=== PATIENT | female | born 1970 | race Two or more races ===

== ENCOUNTER 2017-04-02 17:37 | Emergency (ER) | payer OTHER ==
[~2017-04-02] VITALS: Ht 152.4 cm; Wt 63.5 kg
[2017-04-02 17:39] VITALS: BP 124/79
[2017-04-02] MEDS ORDERED: IBUPROFEN600 MG ORAL (18:28)
[2017-04-02 18:47] VITALS: BP 124/79
--- NOTE | 2017-04-02 21:58 | Emergency Room Report ---
History of Present Illness General Chief Complaint: Laceration Source: Patient Present Illness HPI Patient is a 47-year-old female presenting for left fifth finger pain. Patient is right-hand dominant. She states that door close onto the finger prior to arrival. Pain is now 9/10 dull ache and does not radiate. Worse with movement. She denies any numbness or tingling. She denies any previous injury to the area Allergies: Coded Allergies: No Known Allergies (Unverified , 04/02/17) Patient History Past Medical History: see triage record Pertinent Family History: none Last Menstrual Period: 12/21/16 Reviewed Nursing Documentation: PMH: Agreed, PSxH: Agreed Nursing Documentation-PMH Past Medical History: No History, Except For Review of Systems All Other Systems: negative except mentioned in HPI Physical Exam Vital Signs Date Time Temp Pulse Resp B/P (MAP) Pulse Ox O2 Delivery O2 Flow Rate FiO2 04/02/17 17:39 97.7 68 19 124/79 98 Room Air Sp02 EP Interpretation: reviewed, normal General Appearance: no apparent distress, alert, GCS 15, non-toxic Head: normocephalic, atraumatic Eyes: bilateral eye normal inspection, bilateral eye PERRL Musculoskeletal: decreased range of motion - decreased flexion at PIPJ, swelling, tender - TTP over the L 5th finger proximal to PIPJ Neurologic: alert, oriented x3, responsive, motor strength/tone normal, sensory intact, speech normal Psychiatric: judgement/insight normal, memory normal, mood/affect normal, no suicidal/homicidal ideation Skin: normal color, no rash, warm/dry, well hydrated, abrasions - L 5th finger Lymphatic: no adenopathy Procedures Splinting Splinting : Consent: Verbal Location: L hand 5th finger Pre-Made Type: metal finger Pre-Proc Neuro Vasc Exam: normal Post-Proc Neuro Vasc Exam: normal Patient Tolerated: Well Complications: None Medical Decision Making PA Attestation Dr. Pollard is my supervising physician. Patient management was discussed with my supervising physician Diagnostic Impression: Primary Impression: Contusion, finger Qualified Codes: S60.052A - Contusion of left little finger without damage to nail, initial encounter ER Course Patient is a 47-year-old female presenting for left fifth finger pain. Ddx considered include but not limited to sprain/strain, fracture, contusion PE: NAD. TTP over the L 5th finger proximal to PIPJ. + edema. Abrasion noted. X-ray of the left hand is unremarkable. No fracture Medical finger splint is placed and the patient will be discharged home with pain medication. ER precautions given Other X-Ray Diagnostic Results Other X-Ray Diagnostic Results : X-Ray ordered: L hand # of Views/Limited Vs Complete: 3 View Indication: Pain EP Interpretation: Yes Interpretation: no dislocation, no soft tissue swelling, no fractures Impression: No acute disease Electronically Signed by: Dominik Pollard MD PA Scribe Text I am acting as scribe for my supervising physician. My supervising physician's interpretation of the L hand xrays are there are no fractures, dislocations or soft tissue swelling. Last Vital Signs Date Time Temp Pulse Resp B/P (MAP) Pulse Ox O2 Delivery O2 Flow Rate FiO2 04/02/17 18:47 97.7 68 19 124/79 98 Room Air Status: improved Disposition: HOME, SELF-CARE Condition: Improved Scripts Ibuprofen* (MOTRIN*) 600 Mg Tablet 600 MG ORAL Q8H Y for For Pain, #30 TAB 0 Refills Prov: AUSTIN ISABEL 04/02/17 Referrals: [facility],REFERRING (PCP) Patient Instructions: Cast or Splint Care, RICE for Routine Care of Injuries Additional Instructions: I discussed my findings with the patient. All questions and concerns have been answered. Treatment and medication compliance have been addressed. I advised the patient that they need to follow up with PMD in 3-5 days. Return to ED if symptoms worsen, new symptoms arise, or if needed for any reason. Patient verbalized understanding of discharge instructions. AUSTIN ISABEL Apr 02, 2017 21:58
--- NOTE | 2017-04-03 09:56 | Diagnostic Imaging Report ---
Indication: Pain and laceration of this phalanx status post injury Technique: 3 views left hand Comparison: none Findings: No acute fractures. No dislocations. The joint spaces are preserved. No radiopaque foreign body demonstrated Impression: Negative
== END 2017-04-02 18:47 | disposition home or self-care (01) ==
LOC: EMR 18:25
DX: S60.052A Contusion of left little finger without damage to nail, initial encounter (principal); W22.8XXA Striking against or struck by other objects, initial encounter; Y92.89 Other specified places as the place of occurrence of the external cause
CPT/HCPCS: 99283

== ENCOUNTER 2018-09-22 14:07 | Emergency (ER) | payer OTHER ==
[~2018-09-22] VITALS: Ht 152.4 cm; Wt 65.8 kg
[~2018-09-22 14:07] MED LIST: IBUPROFEN600 MG ORAL
[2018-09-22] MEDS ORDERED: LET 3ml Soln TOPIC ONE (15:00)
--- NOTE | 2018-09-22 15:14 | Emergency Room Report ---
History of Present Illness General Chief Complaint: Laceration Source: Patient (Giovanni Chinchilla) Present Illness HPI 48-year-old female patient presents the ER complaining of laceration on the dorsum of her right hand. Reports she is right-hand dominant. States that she was cleaning a glass when it broke in her hand. Reports laceration sustained on dorsum of right hand. Reports she is up-to-date on her tetanus vaccinations. Denies pain with movement of hand. Denies taking blood thinner medications. Denies numbness or tingling. Denies other aggravating or relieving factors. (Giovanni Chinchilla) Allergies: Coded Allergies: No Known Allergies (Unverified , 04/02/17) Patient History Past Medical History: see triage record Last Menstrual Period: 07/2018 Now: No : 2 Para: 2 Reviewed Nursing Documentation: PMH: Agreed; PSxH: Agreed (Giovanni Chinchilla) Nursing Documentation-PMH Past Medical History: No Stated History (Giovanni Chinchilla) Review of Systems All Other Systems: negative except mentioned in HPI (Giovanni Chinchilla) Physical Exam Vital Signs Date Time Temp Pulse Resp B/P (MAP) Pulse Ox O2 Delivery O2 Flow Rate FiO2 09/22/18 14:30 98.4 84 15 136/85 98 Sp02 EP Interpretation: reviewed, normal General Appearance: well appearing, no apparent distress, alert, GCS 15, non- toxic Head: normocephalic, atraumatic Eyes: bilateral eye normal inspection, bilateral eye PERRL ENT: hearing grossly normal, normal pharynx, no angioedema, normal voice, uvula midline, moist mucus membranes Neck: full range of motion Respiratory: lungs clear, normal breath sounds, no rhonchi, no respiratory distress, no accessory muscle use, no wheezing, speaking full sentences Cardiovascular #1: regular rate, rhythm, no edema Cardiovascular #2: 2+ radial (R), 2+ radial (L) Musculoskeletal: back normal, digits/nails normal, gait/station normal, normal range of motion, non-tender, other - NVI, no snuffbox tenderness Psychiatric: mood/affect normal Skin: other - 2cm L shaped Skin avulsion on dorsum of right hand, bleeding well controlled, no surrounding erythema or edema (Giovanni Chinchilla) Procedures Laceration/Wound Repair Laceration/Wound Repair : Consent: Verbal Wound Location: upper extremity - Right dorsum of hand Wound's Depth, Shape: superficial, irregular Wound Length (cm): 2 Wound Explored: contaminated Irrigated w/ Saline (ccs): 10 Betadine Prep?: Yes Anesthesia: 1% Lidocaine Volume Anesthetic (ccs): 3 Wound Repaired With: tamera Suture Size/Type: 5:0 Number of Sutures: 4 Layer Closure?: No Sterile Dressing Applied?: Yes Splint Applied?: No Sling Applied?: No Patient Tolerated: Well Complications: None (Giovanni Chinchilla) Medical Decision Making PA Attestation Dr. Flowers is my supervising Physician whom patient management has been discussed with. (Giovanni Chinchilla) Diagnostic Impression: Primary Impression: Laceration ER Course Pt presents to ED c/o laceration on dorsum of right hand. DDX considered but are not limited to laceration, abrasion, contusion, cellulitis. VITAL SIGNS are WNL, patient is afebrile ED INTERVENTIONS: Xray negative for acute disease or radiopaque foreign body per the preliminary reading. Wound explored and irrigated with copious amounts of normal saline, low suspicion for retained foreign body. Wound was cleaned and irrigated using copious normal saline. Local block using topical LET and Lidocaine 1%. Laceration repaired. See procedure note. 4 sutures placed. Wound edges well approximated. Wound cleaned and covered using sterile dressing and Bacitracin. Finger dressed to prevent excessive movement of the first metacarpal to help prevent sutures being torn out. Checked afterwards by me showing good alignment and neurovascularly intact. Instructed patient to follow-up or return to ER immediately if symptoms of numbness, increased pain, signs or symptoms of compartment syndrome present. Patient reports understanding and agreement to treatment plan. Keep wound clean and dry. Followup with PCP in 2-3 days for wound check and suture removal in 10-14 days. ER precautions given. DISCHARGE: Rx provided for Keflex Rx provided for Bacitracin Rx provided for Ibuprofen At this time pt is stable for d/c to home. Patient resting comfortably, in no acute distress, nontoxic appearing, talking without difficulty. Will provide with patient care instructions and any necessary prescriptions. Patient to take medication as instructed. Care plan and follow-up instructions provided. Work note provided to patient. Patient questions asked and answered. Patient instructed to follow-up with primary care provider for wound check and suture removal. ER precautions given. Patient instructed to return to ER immediately for any new or worsening of symptoms. - Please note that this Emergency Department Report was dictated using [employer] technology software, occasionally this can lead to erroneous entry secondary to interpretation by the dictation equipment. (Giovanni Chinchilla) Other X-Ray Diagnostic Results Other X-Ray Diagnostic Results : X-Ray ordered: Right hand # of Views/Limited Vs Complete: 3 View Indication: Pain EP Interpretation: Yes PA Xray: Interpretation reviewed, by supervising MD, and agrees with findings. Interpretation: no dislocation, no soft tissue swelling, no fractures Impression: No acute disease PA Scribe Text Bryce Chinchilla PA-C (Giovanni Chinchilla) Other X-Ray Diagnostic Results : Electronically Signed by: Edilson Delaney documentation of Xray reviewed by me and is accurate, Joe Flowers MD (Joe Flowers MD) Last Vital Signs Date Time Temp Pulse Resp B/P (MAP) Pulse Ox O2 Delivery O2 Flow Rate FiO2 09/22/18 14:30 98.4 84 15 136/85 98 Status: improved (Giovanni Chinchilla) Disposition: HOME, SELF-CARE Condition: Stable Scripts Ibuprofen* (MOTRIN*) 600 Mg Tablet 600 MG ORAL Q8H PRN for For Pain, #30 TAB 0 Refills Prov: Giovanni Chinchilla 09/22/18 Cephalexin* (KEFLEX*) 500 Mg Capsule 500 MG ORAL EVERY 12 HOURS, #14 CAP 0 Refills Prov: Giovanni Chinchilla 09/22/18 Bacitracin/Polymyxin B Sulfate (BACITRACIN-POLYMYXIN OINTMENT) 28.35 Gm Oint...g. 1 APPLIC TP BID, #28 GM Prov: Giovanni Chinchilla 09/22/18 Patient Instructions: Laceration Care, Adult Additional Instructions: Patient instructed to follow-up with primary care provider in 2-3 days for wound check Suture removal in 10-14 days. Take medications as directed. Keep wound clean and dry. Patient questions asked and answered. ER precautions given, patient instructed to return to ER immediately for any new or worsening of symptoms. Giovanni Chinchilla Sep 22, 2018 15:13 Joe Flowers MD Sep 23, 2018 05:39
[2018-09-22 15:34] VITALS: BP 132/89
[2018-09-22] MEDS ORDERED: Lidocaine 1% Plain 30 ml INJ ONE (16:00)
--- NOTE | 2018-09-22 16:01 | Diagnostic Imaging Report ---
EXAM: XR Right Hand Complete, 3 or More Views CLINICAL HISTORY: PAIN TECHNIQUE: Frontal, lateral and oblique views of the right hand. COMPARISON: No relevant prior studies available. FINDINGS: Bones/joints: No acute fracture. Soft tissues: No radiodense foreign body. IMPRESSION: No acute fracture.
[2018-09-22] MEDS ORDERED: Tetanus/Diptheria/Pertussis Vaccine 0.5ml Syr IM ONE ×3 (16:29→16:53)
[2018-09-22] MEDS ORDERED: Bacitracin Oint UD TOPIC ONE ×2 (16:37→16:45)
[2018-09-22] MEDS ORDERED: BACITRACIN-P28.35 GM TP (16:39)
[2018-09-22] MEDS ORDERED: CEPHALEXIN500 MG ORAL (16:39)
[2018-09-22] MEDS ORDERED: IBUPROFEN600 MG ORAL (16:39)
[2018-09-22 17:00] VITALS: BP 126/79
--- NOTE | 2018-09-22 17:00 | NUR ---
ER DISCHARGE NOTE: Patient is cleared to be discharged per ERMD, pt is aox4, on room air, with stable vital signs. pt was given dc and prescription instructions, pt was able to verbalize understanding, pt id band removed. pt is able to ambulate with steady gait. pt took all belongings.
== END 2018-09-22 17:00 | disposition home or self-care (01) ==
LOC: EMR 14:55
DX: S61.411A Laceration without foreign body of right hand, initial encounter (principal); W25.XXXA Contact with sharp glass, initial encounter; Y92.9 Unspecified place or not applicable; Z23 Encounter for immunization
CPT/HCPCS: 12001; 73130; 90471; 90715; 99283; J2001

== ENCOUNTER 2018-09-27 21:54 | Emergency (ER) | payer OTHER ==
[~2018-09-27] VITALS: Ht 157.5 cm; Wt 65.8 kg
[~2018-09-27 21:54] MED LIST changes: +BACITRACIN-P28.35 GM TP; +CEPHALEXIN500 MG ORAL
[2018-09-27 22:45] VITALS: BP 115/72
--- NOTE | 2018-09-27 22:55 | NUR ---
ED Nurse Note: Pt needs to recheck R hand wound with suture, patient states that the pain medicine has not been working. patient is alert and oriented x4, ambulatory with a steady gait, VSS
[2018-09-27] MEDS ORDERED: Ketorolac 60mg Inj IM ONE (23:45)
[2018-09-28 00:30] VITALS: BP 122/70
--- NOTE | 2018-09-28 00:30 | NUR ---
ER DISCHARGE NOTE: Patient is cleared to be discharged per ERMD, pt is aox4, on room air, with stable vital signs. pt was given dc and prescription instructions, pt was able to verbalize understanding, pt id band removed without complications. pt is able to ambulate with steady gait. pt took all belongings. patient's wound was irrigated and wrapped
--- NOTE | 2018-09-28 13:40 | Diagnostic Imaging Report ---
Indication: Persistent pain after falling a few weeks ago Technique: 2 views of the right wrist Comparison: 09/22/2018 hand radiograph Findings: Exam is limited due to the availability of only 2 views, suboptimal positioning on the AP view. No definite acute fractures. No dislocations. No radiopaque foreign body Impression: Very limited exam. No gross acute abnormality This agrees with the preliminary interpretation provided by the emergency room physician
--- NOTE | 2018-10-02 15:13 | Emergency Room Report ---
History of Present Illness General Chief Complaint: Wound Recheck/Suture Removal Source: Patient Present Illness HPI Patient is a 48-year-old female presented after increased right-sided wrist pain. Patient had recent repair of a laceration. She reported having a subsequent fall. She reports of increased pain to the wrist area. Pain is worse with movements. She reports having pain to the forearm as well as to the wrist. She denies any other locations of pain. She denies any fever or increased discharge. Allergies: Coded Allergies: No Known Allergies (Unverified , 04/02/17) Patient History Past Medical History: see triage record Last Menstrual Period: Jul 2018 Now: No Reviewed Nursing Documentation: PMH: Agreed; PSxH: Agreed Review of Systems All Other Systems: negative except mentioned in HPI Physical Exam General Appearance: well appearing, no apparent distress, alert, GCS 15 Head: normocephalic, atraumatic ENT: hearing grossly normal, normal voice Neck: full range of motion, supple Respiratory: no respiratory distress, speaking full sentences Musculoskeletal: other - healing wound, tenderness to distal wrist without any snuffbox tenderness Neurologic: normal gait Psychiatric: mood/affect normal Skin: no rash Medical Decision Making Diagnostic Impression: Primary Impression: Wrist pain, right Additional Impression: Encounter for wound re-check ER Course Patient presented for wrist pain after a fall. Differential diagnosis include was not limited to sprain, fracture, dislocation, wound infection among others. X-ray imaging of the right wrist 3 views interpreted by me showed normal bony alignment without fracture. Patient was placed in Adonay wrap. Wound appears to be healing well. Patient was advised suture removal in approximately 1 week to 10 days. Status: improved Disposition: HOME, SELF-CARE Condition: Stable Referrals: [facility],REFERRING (PCP) Patient Instructions: Wound Check, Wrist Pain Jac Umanzor MD Oct 02, 2018 15:13
== END 2018-09-28 00:30 | disposition home or self-care (01) ==
LOC: EMR 23:00
DX: M25.531 Pain in right wrist (principal); Z48.00 Encounter for change or removal of nonsurgical wound dressing
CPT/HCPCS: 96372; 99283